=== PATIENT | female | born 1965 | race Caucasian/White ===

== ENCOUNTER 2018-02-23 01:39 | Emergency (ER) | payer OTHER ==
[~2018-02-23] VITALS: Ht 165.1 cm; Wt 49.9 kg
[2018-02-23 02:05] VITALS: BP 138/81
[2018-02-23] MEDS ORDERED: Morphine Sulfate 4mg/ml Inj (IV USE ONLY) IVP ONE (02:15)
--- NOTE | 2018-02-23 02:19 | Emergency Room Report ---
History of Present Illness General Chief Complaint: Abdominal Pain Source: Patient Present Illness HPI Is a 52-year-old female who has no past medical history. She presents with chief complaint of a gastric pain with nausea vomiting. This occurred after eating at a [place] restaurant. She was eating some corn chips and couple hours later started having symptoms. She had similar symptoms 6 weeks ago when she was in [place] after eating at a [place] restaurant also. Never had this problem before. Pain is sharp and crampy localized epigastric area. No diarrhea. Had nausea and vomiting. Unable to keep anything down. Pain is 9 out of 10. Allergies: Coded Allergies: CODEINE (Verified Adverse Reaction, Unknown, 02/23/18) QUINOLONES (Verified Adverse Reaction, Unknown, 02/23/18) Patient History Past Medical History: none, see triage record, old chart reviewed Past Surgical History: other Pertinent Family History: none Social History: Denies: smoking Last Menstrual Period: n/a Now: No Immunizations: other Reviewed Nursing Documentation: PMH: Agreed; PSxH: Agreed Nursing Documentation-PMH Past Medical History: No Stated History Review of Systems Eye: Denies: eye pain, blurred vision ENT: Denies: ear pain, nose congestion, throat swelling Respiratory: Denies: cough, shortness of breath Cardiovascular: Denies: chest pain, palpitations Gastrointestinal: Reports: abdominal pain, nausea, vomiting; Denies: diarrhea Musculoskeletal: Denies: back pain, joint pain Skin: Denies: rash Neurological: Denies: headache, numbness Endocrine: Denies: increased thirst, increased urine Hematologic/Lymphatic: Denies: easy bruising All Other Systems: negative except mentioned in HPI Physical Exam Vital Signs Date Time Temp Pulse Resp B/P (MAP) Pulse Ox O2 Delivery O2 Flow Rate FiO2 02/23/18 01:53 97.7 81 16 132/83 98 Room Air 97.7 vitals normal Sp02 EP Interpretation: reviewed, normal General Appearance: well appearing, no apparent distress, alert Head: normocephalic, atraumatic Eyes: bilateral eye PERRL, bilateral eye EOMI ENT: hearing grossly normal, normal pharynx Neck: full range of motion, supple, no meningismus Respiratory: chest non-tender, lungs clear, normal breath sounds Cardiovascular #1: regular rate, rhythm, no murmur Gastrointestinal: normal bowel sounds, no mass, no organomegaly, no bruit, non- distended, tenderness - epigastric, decreased bowel sounds Musculoskeletal: back normal, gait/station normal, normal range of motion Psychiatric: mood/affect normal Skin: warm/dry Medical Decision Making Diagnostic Impression: Primary Impression: Abdominal pain Qualified Codes: R10.13 - Epigastric pain ER Course Patient presents with epigastric pain. This may be food allergy versus biliary colic, gastritis, peptic ulcer disease name a few. Better now. Notice of acute abdomen. Labs normal. We'll discharge home. Lab Results Impression labs unremarkable Last Vital Signs Date Time Temp Pulse Resp B/P (MAP) Pulse Ox O2 Delivery O2 Flow Rate FiO2 02/23/18 01:53 97.7 81 16 132/83 98 Room Air 97.7 Status: improved Disposition: HOME, SELF-CARE Condition: Stable Scripts Metoclopramide Hcl* (REGLAN*) 10 Mg Tablet 10 MG ORAL THREE TIMES A DAY, #20 TAB Prov: MIGUEL QUAN M.D. 02/23/18 Patient Instructions: Abdominal Pain, Adult Additional Instructions: Follow-up with your DrCosmo in 3-7 days if not better. Return if symptom worsen. MIGUEL QUAN M.D. Feb 23, 2018 02:19
[2018-02-23] MEDS ORDERED: Metoclopramide 10mg/2ml Inj ONE (02:28)
[2018-02-23 02:29] LABS: BASOPHILS % (AUTO) 0.9 % (0.0-2.0); EOSINOPHILS % (AUTO) 3.5 % (0.0-3.0); HEMATOCRIT 45.4 % (37.0-47.0); HEMOGLOBIN 15.7 G/DL (12.0-16.0); LYMPHOCYTES % (AUTO) 19.2 % (20.0-45.0); MEAN CORPUSCULAR VOLUME 95 FL (80-99); MONOCYTES % (AUTO) 6.7 % (1.0-10.0); NEUTROPHILS % (AUTO) 69.7 % (45.0-75.0); PLATELET COUNT 240 K/UL (150-450); RED BLOOD COUNT 4.81 M/UL (4.20-5.40); RED CELL DISTRIBUTION WIDTH 10.6 % (11.6-14.8); WHITE BLOOD COUNT 8.1 K/UL (4.8-10.8)
[2018-02-23 02:30] LABS: APPEARANCE,URINE CLEAR; BILIRUBIN, URINE NEGATIVE (NEGATIVE); COLOR,URINE PALE YELLOW; GLUCOSE, URINE (UA) NEGATIVE (NEGATIVE); KETONES,URINE NEGATIVE (NEGATIVE); LEUKOCYTE ESTERASE ,URINE 1+ (NEGATIVE); NITRITE,URINE NEGATIVE (NEGATIVE); PH,URINE 5 (4.5-8.0); PROTEIN,URINE NEGATIVE (NEGATIVE); UROBILINOGEN,URINE NORMAL MG/DL (0.0-1.0)
[2018-02-23] MEDS ORDERED: Mylanta II UD 30ml ORAL ONE (02:30)
[2018-02-23] MEDS ORDERED: Metoclopramide 10mg/2ml Inj IVP ONE (02:30)
[2018-02-23] MEDS ORDERED: Dicyclomine HCl 10mg/5ml oral soln ORAL ONE (02:30)
[2018-02-23] MEDS ORDERED: Lidocaine 2% Visc 15ml soln ORAL ONE (02:30)
[2018-02-23 02:39] LABS: ANION GAP 5 mmol/L (5-15); BLOOD UREA NITROGEN 15 mg/dL (7-18); CALCIUM 8.8 MG/DL (8.5-10.1); CARBON DIOXIDE 29 MMOL/L (21-32); CHLORIDE 105 MMOL/L (98-107); CREATININE 0.6 MG/DL (0.55-1.30); POTASSIUM 3.8 MMOL/L (3.5-5.1); SODIUM 139 MMOL/L (136-145)
[2018-02-23 02:45] LABS: ALANINE AMINOTRANSFERASE 29 U/L (12-78); ALBUMIN 3.8 G/DL (3.4-5.0); ALBUMIN/GLOBULIN RATIO 1.3 (1.0-2.7); ALKALINE PHOSPHATASE 149 U/L (46-116); ASPARTATE AMINO TRANSFERASE 33 U/L (15-37); BILIRUBIN,TOTAL 0.3 MG/DL (0.2-1.0)
[2018-02-23 03:25] VITALS: BP 138/81
[2018-02-23] MEDS ORDERED: REGLAN10 MG ORAL (03:25)
== END 2018-02-23 03:25 | disposition home or self-care (01) ==
LOC: EMR 02:17
DX: R10.9 Unspecified abdominal pain (principal); R11.2 Nausea with vomiting, unspecified; Z88.5 Allergy status to narcotic agent; Z88.8 Allergy status to other drugs, medicaments and biological substances
CPT/HCPCS: 36415; 80053; 81003; 83690; 85025; 96361; 96374; 96375; 99284; J2270; J2765